=== PATIENT | male | born 1990 | race African-American/Black ===

== ENCOUNTER 2020-04-12 09:55 | Inpatient (IN) | payer OTHER ==
--- OUTSIDE RECORDS SUMMARY | 2020-04-12 09:59 | XMS ---
:1990 [facility] Support Name Relationship Address Phone UE Unavailable Unavailable Unavailable ANJALI CHAVIRA SELF / SAME PATIENT [address] [place] [address] Re-disclosure Warning The records that you are about to access may contain information from federally- assisted alcohol or drug abuse programs. If such information is present, then the following federally mandated warning applies: This information has been disclosed to you from records protected by federal confidentiality rules (42 CFR part 2). The federal rules prohibit you from making any further disclosure of this information unless further disclosure is expressly permitted by the written consent of the person to whom it pertains or as otherwise permitted by 42 CFR part 2. A general authorization for the release of medical or other information is NOT sufficient for this purpose. The Federal rules restrict any use of the information to criminally investigate or prosecute any alcohol or drug abuse patient.The records that you are about to access may contain highly sensitive health information, the redisclosure of which is protected by Article 27-F of the [facility] Public Health law. If you continue you may haveaccess to information: Regarding HIV / AIDS; Provided by facilities licensed or operated by the [facility] Office of Mental Health; or Provided by the [facility] Office for People With Developmental Disabilities. If such information is present, then the following [facility] mandated warning applies: This information has been disclosed to you from confidential records which are protected by state law. State law prohibits you from making any further disclosure of this information without the specific written consent of the person to whom it pertains, or as otherwise permitted by law. Any unauthorized further disclosure in violation of state law may result in a fine or intermediate sentence or both. A general authorization for the release of medical or other information is NOT sufficient authorization for further disclosure. Insurance Providers Payer name Policy type Policy ID Covered Covered alliance party's Policy P vy / Coverage alliance party ID relationship to Alfaro Inf ormation type alfaro -BEACON [id number] SP [id number] [facility]
--- NOTE | 2020-04-12 11:33 | BHS.RME ---
Substance Use & Tx History - Substance Use History percocet Substance amount: 120 mgs to 150 mgs Frequency of use: Daily Substance route: Oral Date of Last Use: 04/10/20 Marijuana/Hashish Substance amount: 20$ of marijuana Frequency of use: Daily Substance route: Smoking Date of Last Use: 04/10/20 suboxone Substance amount: 4mg Frequency of use: Once a month Date of Last Use: 04/11/20 - Last Treatment Date of last treatment: never been in detox before Physical/Psych/Mental Status - Behavior General Behavior: Increased activity (restlessness, agitation) Eye Contact: Normal - Cooperativeness Cooperativeness: Cooperative - Thinking Thought Processes: Logical Thought content: Future oriented - Physical Health Problems Is patient presently having any pain?: No Does patient presently have any injuries (include location): No Does patient currently have a fever: No COWS - Scale Resting Pulse: 0= [place] 80 or Below Sweatin= Chills/Flushing Restless Observation: 3= Extraneous Movement Pupil Size: 1= Pupils >than Normal Bone or Joint Aches: 2= Severe Diffuse Aches Runny Nose/ Eye Tearin= Runny Nose/Eyes GI Upset > 30mins: 2= Nausea/Diarrhea Tremor Observation: 2= Slight Tremor Visible Yawning Observation: 1= 1-2x During Session Anxiety or Irritability: 2=Irritable/Anxious Goose Flesh Skin: 0=Smooth Skin COWS Score: 16
--- NOTE | 2020-04-12 11:42 | HP ---
COWS - Scale Resting Pulse: 0= [place] 80 or Below Sweatin= Chills/Flushing Restless Observation: 3= Extraneous Movement Pupil Size: 1= Pupils >than Normal Bone or Joint Aches: 2= Severe Diffuse Aches Runny Nose/ Eye Tearin= Runny Nose/Eyes GI Upset > 30mins: 2= Nausea/Diarrhea Tremor Observation: 2= Slight Tremor Visible Yawning Observation: 1= 1-2x During Session Anxiety or Irritability: 2=Irritable/Anxious Goose Flesh Skin: 0=Smooth Skin COWS Score: 16 CIWA Score - Admission Criteria [facility]ASAS Guidelines: Admission for Medically Managed Detox: Requires at least one of the followin. CIWA greater than 12 2. Seizures within the past 24 hours 3. Delirium tremens within the past 24 hours 4. Hallucinations within the past 24 hours 5. Acute intervention needed for co occurring medical disorder 6. Acute intervention needed for co occurring psychiatric disorder 7. Severe withdrawal that cannot be handled at a lower level of care (continued vomiting, continued diarrhea, abnormal vital signs) requiring intravenous medication and/or fluids 8. Admitting History and Physical - Admission Chief Complaint: i need help to stop using percocet History of Present Illness: this 29 years old male with percocet dependence seeking detox,seeking help to stop, withdrawal symptom History Source: Patient Limitations to Obtaining History: No Limitations - Past Medical History Additional Past Medical History: transgender male to female - Smoking History Smoking history: Never smoked - Alcohol/Substance Use Hx Alcohol Use: No - Social History Usual Living Arrangement: Yes: With Parent Do you think of yourself as: Other (transgender male to female) Occupation: unemployed History of Recent Travel: No Other Social History: no legal issue Admission [facility] Chief Complaint: i need help to stop using percocet Allergies/Adverse Reactions: Allergies Allergy/AdvReac Type Severity Reaction Status Date / Time No Known Allergies Allergy Verified 04/12/20 11:43 History of Present Illness: this 29 years old male with percocet dependence seeking detox, first detox denied medical problem no seizure no syncope no legal issue transgender male to female Exam Limitations: No Limitations - Ebola screening Have you traveled outside of the country in the last 21 days: No Have you had contact with anyone from an Ebola affected area: No Have you been sick,other than usual withdrawal symptoms: No Do you have a fever: No - Review of Systems Constitutional: Chills, Loss of Appetite, Malaise, Night Sweats, Changes in sleep, Unintentional Wgt. Loss EENT: reports: Tearing, Nose Congestion Respiratory: reports: No Symptoms reported Cardiac: reports: No Symptoms Reported GI: reports: Nausea, Poor Appetite, Vomiting, Abdominal cramping : reports: No Symptoms Reported Musculoskeletal: reports: Back Pain, Joint Pain, Muscle Pain Integumentary: reports: Dryness Neuro: reports: Tremors Endocrine: reports: No Symptoms Reported Hematology: reports: No Symptoms Reported Psychiatric: reports: No Sypmtoms Reported, Judgement Intact, Mood/Affect Appropiate, Orientated x3 Other Systems: Reviewed and Negative Patient History - Patient Medical History Hx Anemia: No Hx Asthma: No Hx Chronic Obstructive Pulmonary Disease (COPD): No Hx Cancer: No Hx Cardiac Disorders: No Hx Congestive Heart Failure: No Hx Hypertension: No Hx Hypercholesterolemia: No Hx Pacemaker: No HX Cerebrovascular Accident: No Hx Seizures: No Hx Dementia: No Hx Diabetes: No Hx Gastrointestinal Disorders: No Hx Liver Disease: No Hx Genitourinary Disorders: No Hx Sexually Transmitted Disorders: No Hx Renal Disease (ESRD): No Hx Thyroid Disease: No Hx Human Immunodeficiency Virus (HIV): No (last 01/2020 negative) Hx Hepatitis C: No Hx Depression: No Hx Suicide Attempt: No Hx Bipolar Disorder: No Hx Schizophrenia: No Other Medical History: no suicidal,no homicidal - Patient Surgical History Past Surgical History: No - PPD History Previous Implant?: Yes Documented Results: Negative w/o proof Implanted On Prior [facility] Admission?: No PPD to be Administered?: Yes - Smoking Cessation Smoking history: Never smoked - Substance & Tx. History Hx Alcohol Use: No Hx Substance Use: Yes Substance Use Type: Opiates Hx Substance Use Treatment: No - Substances abused Other Other (specify): percocet Substance route: Oral Frequency: Daily Amount used: 120 mgs to 150 mgs Age of first use: 27 Date of last use: 04/10/20 Marijuana/Hashish Substance route: Smoking Frequency: Daily Amount used: 20$ Age of first use: 13 Date of last use: 04/10/20 Admission Physical Exam BHS - Vital Signs Vital Signs: bp 118/74 p50 r18 t98.6 pulse ox 100% alex 0.00 - Physical General Appearance: Yes: Moderate Distress, Tremorous, Irritable, Sweating, Anxious HEENTM: Yes: Normocephalic, JOSHUA, Pharynx Normal Respiratory: Yes: Within Normal Limits, Lungs Clear, Normal Breath Sounds Neck: Yes: Within Normal Limits, No masses,lesions,Nodules, Supple Breast: Yes: Other (bileral brast shahzad iqbal 10 years ago) Cardiology: Yes: Within Normal Limits, Regular Rhythm, Regular Rate, S1, S2 Abdominal: Yes: Within Normal Limits, Non Tender, Flat, Soft, Increased Bowel Sounds Genitourinary: Yes: Within Normal Limits Back: Yes: Muscle Spasm Musculoskeletal: Yes: Back pain, Muscle Pain Extremities: Yes: Tremors 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
[2020-04-12 11:55] VITALS: BMI 17.1
[2020-04-12] MEDS ORDERED: ONDANSETRON *ODT* 4 MG TABLET SL PRN (12:05)
[2020-04-12] MEDS ORDERED: BISMUTH SUBSALICYLATE 524 MG/30 ML UD PO PRN (12:05)
[2020-04-12] MEDS ORDERED: METHOCARBAMOL 500 MG TABLET PO PRN (12:05)
[2020-04-12] MEDS ORDERED: MAGNESIUM CITRATE 300 ML BOTTLE PO PRN (12:05)
[2020-04-12] MEDS ORDERED: ACETAMINOPHEN 325 MG TABLET (FP) PO PRN ×2 (12:05)
[2020-04-12] MEDS ORDERED: MAG HYDROX/AL HYDROX/SIMETH 30 ML UNIT-DOSE CUP PO PRN (12:05)
[2020-04-12] MEDS ORDERED: cloNIDine HCL 0.1 MG TABLET PO PRN (12:05)
[2020-04-12] MEDS ORDERED: IBUPROFEN 400 MG TABLET (FP) PO PRN (12:05)
[2020-04-12] MEDS ORDERED: METHADONE HCL 10 MG TABLET (FOR DETOX USE ONLY) PO ONE (12:05)
[2020-04-12] MEDS ORDERED: MENTHOL/PHENOL 1 EACH UD MM PRN (12:05)
[2020-04-12] MEDS ORDERED: MAGNESIUM HYDROX 2400MG/30ML ORAL SUSPENSION 30 ML CUP PO PRN (12:05)
--- OUTSIDE RECORDS SUMMARY | 2020-04-12 12:05 | XMS ---
:1990 [facility] Support Name Relationship Address Phone UE Unavailable Unavailable Unavailable ANJALI CHAVIRA SELF / SAME PATIENT [address] [place] [address] Re-disclosure Warning The records that you are [...] is protected by Article 27-F of the [facility] Public Health law. If you continue you may haveaccess to information: Regarding HIV / AIDS; Provided by facilities licensed or operated by the [facility] Office of Mental Health; or Provided by the [facility] Office for People With Developmental Disabilities. If such information is present, then the following [facility] mandated warning applies: This information has been [...] law may result in a fine or residential sentence or both. A general authorization for the release of medical or other information is NOT sufficient authorization for further disclosure. Insurance Providers Payer name Policy type Policy ID Covered Covered constitution party's Policy P vy / Coverage constitution party ID relationship to Alfaro Inf ormation type alfaro -BEACON [id number] SP [id number] [facility]
[2020-04-12] MEDS: hydrOXYzine PAMOATE 25 MG CAPSULE (FP) PO SCH ×3 (13:01→21:45)
[2020-04-12] MEDS ORDERED: THIAMINE HCL 100 MG TABLET (FP) PO SCH (22:00)
[2020-04-12] MEDS ORDERED: MELATONIN 5 MG TABLETS PO SCH (22:00)
[2020-04-13] MEDS: hydrOXYzine PAMOATE 25 MG CAPSULE (FP) PO SCH ×3 (06:09→14:22)
--- NOTE | 2020-04-13 07:11 | EKG ---
Test Reason : Blood Pressure : / mmHG Vent. Rate : 051 BPM Atrial Rate : 051 BPM P-R Int : 118 ms QRS Dur : 102 ms QT Int : 436 ms P-R-T Axes : 018 050 039 degrees QTc Int : 401 ms SINUS BRADYCARDIA NONSPECIFIC T WAVE ABNORMALITY BORDERLINE ECG NO PREVIOUS ECGS AVAILABLE CLINICAL CORRELATION IS RECOMMENDED Confirmed by CAIT CASSIDY, BRIAN ([id number]) on 04/13/2020 7:11:39 AM Referred By: FRANKLIN Confirmed By:BRIAN CHAVIRA MD
[2020-04-13] MEDS ORDERED: METHADONE HCL 5 MG TABLET (FOR DETOX USE ONLY) ONE (08:58)
[2020-04-13] MEDS ORDERED: METHADONE HCL 10 MG TABLET (FOR DETOX USE ONLY) ONE (08:58)
[2020-04-13] MEDS ORDERED: METHADONE (DETOX) 20 MG, METHADONE (DETOX) 5 MG PO ONE (10:00)
[2020-04-13] MEDS ORDERED: PRENATAL VITAMINS W/ FOLIC ACID TABLET (FP) PO SCH (10:00)
[2020-04-13 10:18] LABS: HEMATOCRIT 37.4 % (35.4-49); HEMOGLOBIN 12.6 GM/dL (11.7-16.9); MCH 29.6 pg (25.7-33.7); MCHC 33.8 g/dl (32.0-35.9); MEAN CELL VOLUME 87.4 fl (80-96); MEAN PLT VOLUME 9.1 fl (7.5-11.1); PLATELET COUNT 275 K/MM3 (134-434); RBC 4.28 M/mm3 (4.00-5.60); RDW 13.5 % (11.9-15.9); WHITE BLOOD COUNT 10.9 K/mm3 (4.0-10.0)
[2020-04-13 10:24] LABS: ALBUMIN 3.6 g/dl (3.4-5.0); BILIRUBIN,TOTAL 1.1 mg/dL (0.2-1); BLOOD UREA NITROGEN 6.6 mg/dL (7-18); CALCIUM 8.9 mg/dL (8.5-10.1); CREATININE 1.2 mg/dL (0.55-1.3); POTASSIUM 3.9 mmol/L (3.5-5.1); TOT PROT 7.1 g/dl (6.4-8.2)
--- NOTE | 2020-04-13 13:13 | PN ---
BHS COWS - Scale Resting Pulse: 0= [place] 80 or Below Sweatin=Flushed/Facial Moisture Restless Observation: 0= Sits Still Pupil Size: 0= Normal to Room Light Bone or Joint Aches: 2= Severe Diffuse Aches Runny Nose/ Eye Tearin= None GI Upset > 30mins: 0= None Tremor Observation of Outstretched Hands: 2= Slight Tremor Visible Yawning Observation: 0= None Anxiety or Irritability: 2=Irritable/Anxious Goose Flesh Skin: 0=Smooth Skin COWS Score: 8 BHS Progress Note (SOAP) Subjective: C/O sweats, chills, anxiety, body aches, and tremors. Objective: 04/13/20 13:12 Vital Signs 04/13/20 08:51 Temperature 97.8 F Pulse Rate 54 L Respiratory 18 Rate Blood Pressure 101/54 L Laboratory Last Values WBC 10.9 K/mm3 (4.0-10.0) H 04/13/20 07:35 RBC 4.28 M/mm3 (4.00-5.60) 04/13/20 07:35 Hgb 12.6 GM/dL (11.7-16.9) 04/13/20 07:35 Hct 37.4 % (35.4-49) 04/13/20 07:35 MCV 87.4 fl (80-96) 04/13/20 07:35 MCH 29.6 pg (25.7-33.7) 04/13/20 07:35 MCHC 33.8 g/dl (32.0-35.9) 04/13/20 07:35 RDW 13.5 % (11.9-15.9) 04/13/20 07:35 Plt Count 275 K/MM3 (134-434) 04/13/20 07:35 MPV 9.1 fl (7.5-11.1) 04/13/20 07:35 Sodium 138 mmol/L (136-145) 04/13/20 07:35 Potassium 3.9 mmol/L (3.5-5.1) 04/13/20 07:35 Chloride 103 mmol/L (98-107) 04/13/20 07:35 Carbon Dioxide 29 mmol/L (21-32) 04/13/20 07:35 Anion Gap 6 MMOL/L (8-16) L 04/13/20 07:35 BUN 6.6 mg/dL (7-18) L 04/13/20 07:35 Creatinine 1.2 mg/dL (0.55-1.3) 04/13/20 07:35 Est GFR (CKD-EPI)AfAm 94.14 04/13/20 07:35 Est GFR (CKD-EPI)NonAf 81.23 04/13/20 07:35 Random Glucose 92 mg/dL (74-106) 04/13/20 07:35 Calcium 8.9 mg/dL (8.5-10.1) 04/13/20 07:35 Total Bilirubin 1.1 mg/dL (0.2-1) H 04/13/20 07:35 AST 15 U/L (15-37) 04/13/20 07:35 ALT 27 U/L (13-61) 04/13/20 07:35 Alkaline Phosphatase 54 U/L (45-117) 04/13/20 07:35 Total Protein 7.1 g/dl (6.4-8.2) 04/13/20 07:35 Albumin 3.6 g/dl (3.4-5.0) 04/13/20 07:35 Syphilis Serology Reactive (NONREACTIVE) A* 04/13/20 07:35 RPR Titer Reactive 1:1 (NONREACTIVE) H 04/13/20 07:35 HIV Ag/Ab Combo Qual Negative (NEGATIVE) 04/13/20 07:50 Labs noted with reactive RPR, patient was treated in the past for syphilis. Assessment: 04/13/20 13:13 Alert and oriented x3, in no acute respiratory distress. Full ROM, ambulating in the unit without assistance. Withdrawal symptoms. Plan: Continue detox protocol.
--- NOTE | 2020-04-13 17:23 | DS ---
[facility] Detox Discharge Summary Admission Date: 04/12/20 Discharge Date: 04/13/20 - History Additional Comments: Patient is leaving against medical advice. Risks and consequences of his actions reinforced. Patient verbalized understanding of instructions, signed the AMA form and was escorted off the unit by security. He is alert and oriented x 3, ambulates independently, not in acute distress and vital signs stable. Pertinent Past History: Opioid dependence Cannabis dependence Syphilis Transgender - Physical Exam Results Vital Signs: Vital Signs Temperature 98.4 F 04/13/20 13:18 Pulse Rate 57 L 04/13/20 13:18 Respiratory Rate 18 04/13/20 13:18 Blood Pressure 120/68 04/13/20 13:18 O2 Sat by Pulse Oximetry (%) 100 04/13/20 13:18 Laboratory Last Values WBC 10.9 K/mm3 (4.0-10.0) H 04/13/20 07:35 RBC 4.28 M/mm3 (4.00-5.60) 04/13/20 07:35 Hgb 12.6 GM/dL (11.7-16.9) 04/13/20 07:35 Hct 37.4 % (35.4-49) 04/13/20 07:35 MCV 87.4 fl (80-96) 04/13/20 07:35 MCH 29.6 pg (25.7-33.7) 04/13/20 07:35 MCHC 33.8 g/dl (32.0-35.9) 04/13/20 07:35 RDW 13.5 % (11.9-15.9) 04/13/20 07:35 Plt Count 275 K/MM3 (134-434) 04/13/20 07:35 MPV 9.1 fl (7.5-11.1) 04/13/20 07:35 Sodium 138 mmol/L (136-145) 04/13/20 07:35 Potassium 3.9 mmol/L (3.5-5.1) 04/13/20 07:35 Chloride 103 mmol/L (98-107) 04/13/20 07:35 Carbon Dioxide 29 mmol/L (21-32) 04/13/20 07:35 Anion Gap 6 MMOL/L (8-16) L 04/13/20 07:35 BUN 6.6 mg/dL (7-18) L 04/13/20 07:35 Creatinine 1.2 mg/dL (0.55-1.3) 04/13/20 07:35 Est GFR (CKD-EPI)AfAm 94.14 04/13/20 07:35 Est GFR (CKD-EPI)NonAf 81.23 04/13/20 07:35 Random Glucose 92 mg/dL (74-106) 04/13/20 07:35 Calcium 8.9 mg/dL (8.5-10.1) 04/13/20 07:35 Total Bilirubin 1.1 mg/dL (0.2-1) H 04/13/20 07:35 AST 15 U/L (15-37) 04/13/20 07:35 ALT 27 U/L (13-61) 04/13/20 07:35 Alkaline Phosphatase 54 U/L (45-117) 04/13/20 07:35 Total Protein 7.1 g/dl (6.4-8.2) 04/13/20 07:35 Albumin 3.6 g/dl (3.4-5.0) 04/13/20 07:35 Syphilis Serology Reactive (NONREACTIVE) A* 04/13/20 07:35 RPR Titer Reactive 1:1 (NONREACTIVE) H 04/13/20 07:35 COVID-19 (XAVI) Not detected (Not Detected) 04/12/20 12:15 HIV Ag/Ab Combo Qual Negative (NEGATIVE) 04/13/20 07:50 Pertinent Admission Physical Exam Findings: Opioid withdrawal symptoms - Medication Discharge Medications: Ambulatory Orders NK [No Known Home Medication] 04/12/20 - Diagnosis (1) Syphilis in male Current Visit: Yes Status: Chronic (2) Cannabis dependence Current Visit: Yes Status: Chronic (3) Opioid dependence with withdrawal Current Visit: Yes Status: Chronic (4) Transgender Current Visit: Yes Status: Chronic - AMA Did Patient Leave Against Medical Advice: Yes
[2020-04-13 18:22] VITALS: BP 130/66; PULSE 56; TEMP 98.2
[2020-04-14] MEDS ORDERED: METHADONE HCL 10 MG TABLET (FOR DETOX USE ONLY) PO ONE (10:00)
[2020-04-15] MEDS ORDERED: METHADONE (DETOX) 10 MG, METHADONE (DETOX) 5 MG PO ONE (10:00)
[2020-04-16] MEDS ORDERED: METHADONE HCL 10 MG TABLET (FOR DETOX USE ONLY) PO ONE (10:00)
[2020-04-17] MEDS ORDERED: METHADONE HCL 5 MG TABLET (FOR DETOX USE ONLY) PO ONE (06:00)
== END 2020-04-13 17:39 | disposition left against medical advice (07) | DRG 770 ==
LOC: YASAS 09:55 → Y6N 12:01
PROVIDERS: ADMIT Allergy & Immunology; ATTEND Allergy & Immunology
PROC: HZ2ZZZZ Detoxification Services for Substance Abuse Treatment (ICD-10-PCS; principal; 2020-04-12)
DX: F11.23 Opioid dependence with withdrawal (principal); F12.20 Cannabis dependence, uncomplicated; F64.0 Transsexualism; A53.0 Latent syphilis, unspecified as early or late
CPT/HCPCS: 36415; 80053; 85027; 86593; 86780; 87389; 93005; 93010; C9803; U0003

== ENCOUNTER 2020-06-14 08:25 | Inpatient (IN) | payer OTHER ==
[2020-06-14] MEDS ORDERED: MENTHOL/PHENOL 1 EACH UD MM PRN (11:17)
[2020-06-14] MEDS ORDERED: MAGNESIUM CITRATE 300 ML BOTTLE PO PRN (11:17)
[2020-06-14] MEDS ORDERED: MAG HYDROX/AL HYDROX/SIMETH 30 ML UNIT-DOSE CUP PO PRN (11:17)
[2020-06-14] MEDS ORDERED: ONDANSETRON *ODT* 4 MG TABLET SL PRN (11:17)
[2020-06-14] MEDS ORDERED: ACETAMINOPHEN 325 MG TABLET (FP) PO PRN ×2 (11:17)
[2020-06-14] MEDS ORDERED: MAGNESIUM HYDROX 2400MG/30ML ORAL SUSPENSION 30 ML CUP PO PRN (11:17)
[2020-06-14] MEDS ORDERED: IBUPROFEN 400 MG TABLET (FP) PO PRN (11:17)
[2020-06-14] MEDS ORDERED: BISMUTH SUBSALICYLATE 524 MG/30 ML UD PO PRN (11:17)
[2020-06-14] MEDS ORDERED: cloNIDine HCL 0.1 MG TABLET PO PRN (11:20)
[2020-06-14] MEDS ORDERED: METHADONE HCL 10 MG TABLET (FOR DETOX USE ONLY) PO ONE (11:20)
[2020-06-14] MEDS: hydrOXYzine PAMOATE 25 MG CAPSULE (FP) PO PRN (22:07)
[2020-06-14] MEDS: METHOCARBAMOL 500 MG TABLET PO PRN (22:07)
[2020-06-14] MEDS: MELATONIN 5 MG TABLETS PO SCH (22:07)
[2020-06-14] MEDS: THIAMINE HCL 100 MG TABLET (FP) PO SCH (22:08)
[2020-06-15] MEDS: hydrOXYzine PAMOATE 25 MG CAPSULE (FP) PO PRN ×2 (06:31→22:10)
[2020-06-15] MEDS ORDERED: METHADONE HCL 10 MG TABLET (FOR DETOX USE ONLY) ONE (08:47)
[2020-06-15] MEDS ORDERED: METHADONE HCL 5 MG TABLET (FOR DETOX USE ONLY) ONE (08:47)
[2020-06-15 09:18] LABS: POTASSIUM 3.8 mmol/L (3.5-5.1)
[2020-06-15 09:20] LABS: CALCIUM 9.5 mg/dL (8.5-10.1)
[2020-06-15 09:21] LABS: ALBUMIN 4.2 g/dl (3.4-5.0); BLOOD UREA NITROGEN 8.3 mg/dL (7-18); MCH 28.9 pg (25.7-33.7); MCHC 32.5 g/dl (32.0-35.9); MEAN CELL VOLUME 88.9 fl (80-96); MEAN PLT VOLUME 9.5 fl (7.5-11.1); PLATELET COUNT 293 K/MM3 (134-434); RBC 5.18 M/mm3 (4.00-5.60); RDW 13.9 % (11.9-15.9); WHITE BLOOD COUNT 14.4 K/mm3 (4.0-10.0)
[2020-06-15 09:24] LABS: CREATININE 1.4 mg/dL (0.55-1.3)
[2020-06-15 09:25] LABS: BILIRUBIN,TOTAL 0.9 mg/dL (0.2-1)
[2020-06-15] MEDS ORDERED: METHADONE (DETOX) 20 MG, METHADONE (DETOX) 5 MG PO ONE (10:00)
[2020-06-15] MEDS: PRENATAL VITAMINS W/ FOLIC ACID TABLET (FP) PO SCH (10:07)
[2020-06-15] MEDS: THIAMINE HCL 100 MG TABLET (FP) PO SCH (22:10)
[2020-06-15] MEDS: MELATONIN 5 MG TABLETS PO SCH (22:11)
[2020-06-15] MEDS: METHOCARBAMOL 500 MG TABLET PO PRN (22:11)
[2020-06-16] MEDS ORDERED: METHADONE HCL 10 MG TABLET (FOR DETOX USE ONLY) PO ONE (10:00)
[2020-06-16] MEDS: PRENATAL VITAMINS W/ FOLIC ACID TABLET (FP) PO SCH (10:34)
[2020-06-16] MEDS: hydrOXYzine PAMOATE 25 MG CAPSULE (FP) PO PRN (16:04)
[2020-06-16] MEDS: METHOCARBAMOL 500 MG TABLET PO PRN (16:04)
[2020-06-16] MEDS: MELATONIN 5 MG TABLETS PO SCH (22:08)
[2020-06-16] MEDS: THIAMINE HCL 100 MG TABLET (FP) PO SCH (22:08)
[2020-06-17] MEDS ORDERED: METHADONE HCL 10 MG TABLET (FOR DETOX USE ONLY) ONE (08:48)
[2020-06-17] MEDS ORDERED: METHADONE HCL 5 MG TABLET (FOR DETOX USE ONLY) ONE (08:48)
[2020-06-17] MEDS ORDERED: METHADONE (DETOX) 10 MG, METHADONE (DETOX) 5 MG PO ONE (10:00)
[2020-06-17] MEDS: PRENATAL VITAMINS W/ FOLIC ACID TABLET (FP) PO SCH (10:48)
[2020-06-17] MEDS: METHOCARBAMOL 500 MG TABLET PO PRN ×2 (14:22→20:17)
[2020-06-17] MEDS: hydrOXYzine PAMOATE 25 MG CAPSULE (FP) PO PRN ×2 (14:22→22:08)
[2020-06-17] MEDS: THIAMINE HCL 100 MG TABLET (FP) PO SCH (22:08)
[2020-06-17] MEDS: MELATONIN 5 MG TABLETS PO SCH (22:08)
[2020-06-18] MEDS ORDERED: METHADONE HCL 10 MG TABLET (FOR DETOX USE ONLY) PO ONE (10:00)
[2020-06-18] MEDS: PRENATAL VITAMINS W/ FOLIC ACID TABLET (FP) PO SCH (10:34)
[2020-06-18 10:56] VITALS: BP 122/70; PULSE 65; TEMP 97.9
[2020-06-19] MEDS ORDERED: METHADONE HCL 5 MG TABLET (FOR DETOX USE ONLY) PO ONE (06:00)
== END 2020-06-18 10:20 | disposition home or self-care (01) | DRG 773 ==
LOC: YASAS 08:25 → Y6N 11:17
PROVIDERS: ADMIT Allergy & Immunology; ATTEND Allergy & Immunology
PROC: HZ2ZZZZ Detoxification Services for Substance Abuse Treatment (ICD-10-PCS; principal; 2020-06-14)
DX: F11.23 Opioid dependence with withdrawal (principal); F12.20 Cannabis dependence, uncomplicated; F64.0 Transsexualism; Z86.19 Personal history of other infectious and parasitic diseases; Z56.0 Unemployment, unspecified
CPT/HCPCS: 36415; 80053; 85027; 86593; 86780; C9803; J0735; Q0162; U0003

== ENCOUNTER 2020-09-12 11:07 | Inpatient (IN) | payer OTHER ==
[2020-09-12 11:35] VITALS: BMI 22.5
[2020-09-12] MEDS ORDERED: BISMUTH SUBSALICYLATE 262 MG/15 ML BTL PO PRN (12:03)
[2020-09-12] MEDS ORDERED: MAGNESIUM HYDROX 2400MG/30ML ORAL SUSPENSION 30 ML CUP PO PRN (12:03)
[2020-09-12] MEDS ORDERED: MAG HYDROX/AL HYDROX/SIMETH 30 ML UNIT-DOSE CUP PO PRN (12:03)
[2020-09-12] MEDS ORDERED: MAGNESIUM CITRATE 300 ML BOTTLE PO PRN (12:03)
[2020-09-12] MEDS ORDERED: IBUPROFEN 400 MG TABLET (FP) PO PRN (12:03)
[2020-09-12] MEDS ORDERED: MENTHOL/PHENOL 1 EACH UD MM PRN (12:03)
[2020-09-12] MEDS ORDERED: ACETAMINOPHEN 325 MG TABLET (FP) PO PRN ×2 (12:03)
[2020-09-12] MEDS ORDERED: ONDANSETRON *ODT* 4 MG TABLET SL PRN (12:03)
[2020-09-12] MEDS ORDERED: cloNIDine HCL 0.1 MG TABLET PO PRN (12:38)
[2020-09-12] MEDS ORDERED: METHADONE HCL 10 MG TABLET (FOR DETOX USE ONLY) PO ONE (12:38)
[2020-09-12] MEDS: hydrOXYzine PAMOATE 25 MG CAPSULE (FP) PO SCH ×3 (15:03→22:25)
[2020-09-12 15:18] LABS: HEMATOCRIT 43.4 % (35.4-49); HEMOGLOBIN 14.2 GM/dL (11.7-16.9); MCH 28.5 pg (25.7-33.7); MCHC 32.6 g/dl (32.0-35.9); MEAN CELL VOLUME 87.4 fl (80-96); MEAN PLT VOLUME 9.4 fl (7.5-11.1); PLATELET COUNT 324 K/MM3 (134-434); RBC 4.96 M/mm3 (4.00-5.60); RDW 13.4 % (11.9-15.9); WHITE BLOOD COUNT 11.7 K/mm3 (4.0-10.0)
[2020-09-12 15:22] LABS: POTASSIUM 3.9 mmol/L (3.5-5.1)
[2020-09-12 15:27] LABS: CALCIUM 9.8 mg/dL (8.5-10.1)
[2020-09-12 15:28] LABS: ALBUMIN 4.2 g/dl (3.4-5.0); BLOOD UREA NITROGEN 7.6 mg/dL (7-18)
[2020-09-12 15:31] LABS: CREATININE 1.1 mg/dL (0.55-1.3)
[2020-09-12 15:33] LABS: BILIRUBIN,TOTAL 0.5 mg/dL (0.2-1)
[2020-09-12] MEDS: METHOCARBAMOL 500 MG TABLET PO PRN (15:59)
[2020-09-12] MEDS: MELATONIN 5 MG TABLETS PO SCH (22:25)
[2020-09-12] MEDS: THIAMINE HCL 100 MG TABLET (FP) PO SCH (22:25)
[2020-09-13] MEDS: hydrOXYzine PAMOATE 25 MG CAPSULE (FP) PO SCH ×5 (06:47→22:10)
[2020-09-13] MEDS ORDERED: METHADONE HCL 10 MG TABLET (FOR DETOX USE ONLY) ONE (09:28)
[2020-09-13] MEDS ORDERED: METHADONE HCL 5 MG TABLET (FOR DETOX USE ONLY) ONE (09:28)
[2020-09-13] MEDS ORDERED: METHADONE (DETOX) 20 MG, METHADONE (DETOX) 5 MG PO ONE (10:00)
[2020-09-13] MEDS: PRENATAL VITAMINS W/ FOLIC ACID TABLET (FP) PO SCH (10:42)
[2020-09-13] MEDS: METHOCARBAMOL 500 MG TABLET PO PRN (15:24)
[2020-09-13] MEDS: MELATONIN 5 MG TABLETS PO SCH (22:10)
[2020-09-13] MEDS: THIAMINE HCL 100 MG TABLET (FP) PO SCH (22:10)
[2020-09-14] MEDS: hydrOXYzine PAMOATE 25 MG CAPSULE (FP) PO SCH ×5 (07:07→22:33)
[2020-09-14] MEDS: PRENATAL VITAMINS W/ FOLIC ACID TABLET (FP) PO SCH (09:34)
[2020-09-14] MEDS ORDERED: METHADONE HCL 10 MG TABLET (FOR DETOX USE ONLY) PO ONE (10:00)
[2020-09-14 18:20] LABS: PH,URINE 7.5 (5.0-8.0); URINE APPEARANCE CLEAR; URINE BILIRUBIN NEGATIVE (NEGATIVE); URINE COLOR YELLOW; URINE GLUCOSE (UA) NEGATIVE (NEGATIVE); URINE KETONE NEGATIVE (NEGATIVE); URINE LEUK ESTERASE NEGATIVE (NEGATIVE); URINE NITRITE NEGATIVE (NEGATIVE); URINE PROTEIN NEGATIVE (NEGATIVE); URINE UROBILINOGEN 0.2 mg/dL (0.2-1.0)
[2020-09-14] MEDS: THIAMINE HCL 100 MG TABLET (FP) PO SCH (22:33)
[2020-09-14] MEDS: MELATONIN 5 MG TABLETS PO SCH (22:34)
[2020-09-15] MEDS: hydrOXYzine PAMOATE 25 MG CAPSULE (FP) PO SCH (06:37)
[2020-09-15] MEDS: METHOCARBAMOL 500 MG TABLET PO PRN (06:39)
[2020-09-15 06:47] VITALS: BP 138/81; PULSE 65; TEMP 97.5
[2020-09-15] MEDS ORDERED: METHADONE (DETOX) 10 MG, METHADONE (DETOX) 5 MG PO ONE (10:00)
[2020-09-16] MEDS ORDERED: METHADONE HCL 10 MG TABLET (FOR DETOX USE ONLY) PO ONE (10:00)
[2020-09-17] MEDS ORDERED: METHADONE HCL 5 MG TABLET (FOR DETOX USE ONLY) PO ONE (06:00)
== END 2020-09-15 10:20 | disposition left against medical advice (07) | DRG 770 ==
LOC: YASAS 11:07 → Y6N 12:07
PROVIDERS: ADMIT Allergy & Immunology; ATTEND Allergy & Immunology
DX: F11.23 Opioid dependence with withdrawal (principal); F12.20 Cannabis dependence, uncomplicated; F19.24 Other psychoactive substance dependence with psychoactive substance-induced mood disorder; F41.9 Anxiety disorder, unspecified; F64.0 Transsexualism; A53.0 Latent syphilis, unspecified as early or late
CPT/HCPCS: 36415; 80053; 81003; 85027; 86593; 86780; C9803; U0003

== ENCOUNTER 2021-04-20 15:14 | Inpatient (IN) | payer OTHER ==
[2021-04-20 19:19] VITALS: BMI 23.8
[2021-04-20] MEDS ORDERED: ONDANSETRON *ODT* 4 MG TABLET SL PRN (19:24)
[2021-04-20] MEDS ORDERED: METHOCARBAMOL 500 MG TABLET PO PRN (19:24)
[2021-04-20] MEDS ORDERED: MAG HYDROX/AL HYDROX/SIMETH 30 ML UNIT-DOSE CUP PO PRN (19:24)
[2021-04-20] MEDS ORDERED: IBUPROFEN 400 MG TABLET (FP) PO PRN (19:24)
[2021-04-20] MEDS ORDERED: MENTHOL/PHENOL 1 EACH UD MM PRN (19:24)
[2021-04-20] MEDS ORDERED: MAGNESIUM CITRATE 300 ML BOTTLE PO PRN (19:24)
[2021-04-20] MEDS ORDERED: BISMUTH SUBSALICYLATE 524 MG/30 ML PO PRN (19:24)
[2021-04-20] MEDS ORDERED: ACETAMINOPHEN 325 MG TABLET (FP) PO PRN ×2 (19:24)
[2021-04-20] MEDS ORDERED: MAGNESIUM HYDROX 2400MG/30ML ORAL SUSPENSION 30 ML CUP PO PRN (19:24)
[2021-04-20] MEDS ORDERED: cloNIDine HCL 0.1 MG TABLET PO PRN (19:26)
[2021-04-20] MEDS ORDERED: methaDONE HCL 10 MG TABLET (FOR DETOX USE ONLY) PO ONE (19:26)
[2021-04-20] MEDS: hydrOXYzine PAMOATE 25 MG CAPSULE (FP) PO SCH (21:34)
[2021-04-20] MEDS: THIAMINE HCL 100 MG TABLET (FP) PO SCH (21:34)
[2021-04-20] MEDS: MELATONIN 5 MG TABLETS PO SCH (23:27)
[2021-04-21] MEDS: hydrOXYzine PAMOATE 25 MG CAPSULE (FP) PO SCH ×5 (05:46→22:24)
[2021-04-21] MEDS ORDERED: methaDONE HCL 10 MG TABLET (FOR DETOX USE ONLY) ONE (09:35)
[2021-04-21] MEDS: PRENATAL VITAMINS W/ FOLIC ACID TABLET (FP) PO SCH (10:12)
[2021-04-21 12:50] LABS: HEMATOCRIT 40.7 % (35.4-49); HEMOGLOBIN 13.8 GM/dL (11.7-16.9); MCH 29.1 pg (25.7-33.7); MEAN CELL VOLUME 85.6 fl (80-96); MEAN PLT VOLUME 9.1 fl (7.5-11.1); PLATELET COUNT 291 10^3/uL (134-434); RBC 4.75 M/mm3 (4.00-5.60); RDW 13.6 % (11.9-15.9); WHITE BLOOD COUNT 15.1 K/mm3 (4.0-10.0)
[2021-04-21 12:54] LABS: BLOOD UREA NITROGEN 13.2 mg/dL (7-18); CALCIUM 9.4 mg/dL (8.5-10.1)
[2021-04-21 12:57] LABS: CREATININE 1.4 mg/dL (0.55-1.3)
[2021-04-21 12:58] LABS: TOT PROT 7.7 g/dl (6.4-8.2)
[2021-04-21] MEDS: THIAMINE HCL 100 MG TABLET (FP) PO SCH (22:23)
[2021-04-21] MEDS: MELATONIN 5 MG TABLETS PO SCH (22:24)
[2021-04-21 23:17] LABS: HIV INTERPRETATION NEGATIVE (NEGATIVE)
[2021-04-22] MEDS: hydrOXYzine PAMOATE 25 MG CAPSULE (FP) PO SCH ×5 (05:53→21:56)
[2021-04-22] MEDS ORDERED: methaDONE HCL 10 MG TABLET (FOR DETOX USE ONLY) PO ONE (10:00)
[2021-04-22] MEDS: PRENATAL VITAMINS W/ FOLIC ACID TABLET (FP) PO SCH (10:05)
[2021-04-22] MEDS: NICOTINE 10 MG CARTRIDGE (INHALER) IH PRN (10:08)
[2021-04-22] MEDS ORDERED: POTASSIUM CHLORIDE ORAL LIQUID 20 MEQ/15 ML PO ONE ×2 (14:30→18:30)
[2021-04-22] MEDS: MELATONIN 5 MG TABLETS PO SCH (21:55)
[2021-04-22] MEDS: THIAMINE HCL 100 MG TABLET (FP) PO SCH (21:56)
[2021-04-23] MEDS: hydrOXYzine PAMOATE 25 MG CAPSULE (FP) PO SCH ×5 (05:56→21:10)
[2021-04-23] MEDS ORDERED: methaDONE HCL 10 MG TABLET (FOR DETOX USE ONLY) ONE (09:38)
[2021-04-23] MEDS: PRENATAL VITAMINS W/ FOLIC ACID TABLET (FP) PO SCH (10:08)
[2021-04-23 11:14] LABS: HEMATOCRIT 43.1 % (35.4-49); HEMOGLOBIN 14.4 GM/dL (11.7-16.9); MCH 29.1 pg (25.7-33.7); MCHC 33.4 g/dl (32.0-35.9); MEAN CELL VOLUME 87.2 fl (80-96); MEAN PLT VOLUME 8.7 fl (7.5-11.1); PLATELET COUNT 295 10^3/uL (134-434); RBC 4.94 M/mm3 (4.00-5.60); RDW 13.4 % (11.9-15.9); WHITE BLOOD COUNT 11.2 K/mm3 (4.0-10.0)
[2021-04-23] MEDS: NICOTINE 10 MG CARTRIDGE (INHALER) IH PRN (14:50)
[2021-04-23] MEDS: MELATONIN 5 MG TABLETS PO SCH (21:10)
[2021-04-23] MEDS: THIAMINE HCL 100 MG TABLET (FP) PO SCH (21:10)
[2021-04-24] MEDS: hydrOXYzine PAMOATE 25 MG CAPSULE (FP) PO SCH ×2 (06:23→09:48)
[2021-04-24 09:47] VITALS: BP 102/53; PULSE 62; TEMP 97.5
[2021-04-24] MEDS: PRENATAL VITAMINS W/ FOLIC ACID TABLET (FP) PO SCH (09:48)
[2021-04-24] MEDS ORDERED: methaDONE HCL 10 MG TABLET (FOR DETOX USE ONLY) PO ONE (10:00)
== END 2021-04-24 10:25 | disposition home or self-care (01) | DRG 773 ==
LOC: YASAS 15:14 → Y6N 20:28
PROVIDERS: ADMIT Allergy & Immunology; ATTEND Allergy & Immunology
PROC: HZ2ZZZZ Detoxification Services for Substance Abuse Treatment (ICD-10-PCS; principal; 2021-04-20)
DX: F11.23 Opioid dependence with withdrawal (principal); F12.20 Cannabis dependence, uncomplicated; F17.210 Nicotine dependence, cigarettes, uncomplicated; F19.24 Other psychoactive substance dependence with psychoactive substance-induced mood disorder; F41.9 Anxiety disorder, unspecified; F64.9 Gender identity disorder, unspecified; D72.829 Elevated white blood cell count, unspecified; Z86.19 Personal history of other infectious and parasitic diseases; Z56.0 Unemployment, unspecified
CPT/HCPCS: 36415; 80053; 84132; 85027; 86593; 86780; 87389; C9803; U0003; U0005

== ENCOUNTER 2022-08-25 11:45 | Inpatient (IN) | payer OTHER ==
[2022-08-25 12:12] VITALS: BMI 23.0
[2022-08-25] MEDS ORDERED: DICYCLOMINE HCL 10 MG CAPSULE PO PRN (12:50)
[2022-08-25] MEDS ORDERED: MAG HYDROX/AL HYDROX/SIMETH 30 ML UNIT-DOSE CUP PO PRN (12:50)
[2022-08-25] MEDS ORDERED: BENZOCAINE/MENTHOL (CHLORASEPTIC ) LOZENGE MM PRN (12:50)
[2022-08-25] MEDS ORDERED: BISMUTH SUBSALICYLATE 524 MG/30 ML PO PRN (12:50)
[2022-08-25] MEDS ORDERED: ONDANSETRON *ODT* 4 MG TABLET SL PRN (12:50)
[2022-08-25] MEDS ORDERED: MAGNESIUM HYDROX 2400MG/30ML ORAL SUSPENSION 30 ML CUP PO PRN (12:50)
[2022-08-25] MEDS ORDERED: LOPERAMIDE HCL 2 MG CAPSULE PO PRN (12:50)
[2022-08-25] MEDS ORDERED: POLYETHYLENE GLYCOL (HEALTHYLAX) 3350 17 GM PACKET PO PRN (12:50)
[2022-08-25] MEDS ORDERED: NALOXONE HCL (KLOXXADO) 8 MG SPRAY NS PRN (12:50)
[2022-08-25] MEDS ORDERED: ACETAMINOPHEN 325 MG TABLET (FP) PO PRN ×2 (12:50)
[2022-08-25] MEDS ORDERED: methaDONE HCL 10 MG TABLET (FOR DETOX USE ONLY) PO ONE (12:50)
[2022-08-25] MEDS ORDERED: IBUPROFEN 600 MG TABLET (FP) PO PRN (12:50)
[2022-08-25] MEDS ORDERED: IBUPROFEN 400 MG TABLET (FP) PO PRN (12:50)
[2022-08-25] MEDS ORDERED: methaDONE HCL 10 MG TABLET (FOR DETOX USE ONLY) ONE (13:32)
[2022-08-25 16:42] LABS: HEMATOCRIT 38.7 % (32.4-45.2); HEMOGLOBIN 13.2 GM/dL (10.7-15.3); MCH 29.3 pg (25.7-33.7); MCHC 34.2 g/dl (32.0-36.0); MEAN CELL VOLUME 85.6 fl (80-96); MEAN PLT VOLUME 8.6 fl (7.5-11.1); PLATELET COUNT 275 10^3/uL (134-434); RBC 4.53 M/mm3 (3.60-5.2); RDW 13.9 % (11.6-15.6); WHITE BLOOD COUNT 11.5 K/mm3 (4.0-10.0)
[2022-08-25 16:45] LABS: ALBUMIN 3.9 g/dl (3.4-5.0); CALCIUM 9.5 mg/dL (8.5-10.1)
[2022-08-25 16:46] LABS: BLOOD UREA NITROGEN 6.6 mg/dL (7-18)
[2022-08-25 16:48] LABS: CREATININE 1.2 mg/dL (0.55-1.3)
[2022-08-25 16:50] LABS: BILIRUBIN,TOTAL 0.7 mg/dL (0.2-1); TOT PROT 7.2 g/dl (6.4-8.2)
[2022-08-25] MEDS: MELATONIN 5 MG TABLETS PO SCH (21:56)
[2022-08-25] MEDS: THIAMINE HCL 100 MG TABLET (FP) PO SCH (21:56)
[2022-08-26] MEDS: PRENATAL VITAMINS W/ FOLIC ACID TABLET (FP) PO SCH (10:41)
[2022-08-26] MEDS: METHOCARBAMOL 500 MG TABLET PO PRN (17:49)
[2022-08-26] MEDS: THIAMINE HCL 100 MG TABLET (FP) PO SCH (22:07)
[2022-08-26] MEDS: MELATONIN 5 MG TABLETS PO SCH (22:07)
[2022-08-26] MEDS: hydrOXYzine PAMOATE 25 MG CAPSULE (FP) PO PRN (22:08)
[2022-08-27] MEDS ORDERED: methaDONE HCL 10 MG TABLET (FOR DETOX USE ONLY) PO ONE (10:00)
[2022-08-27] MEDS: METHOCARBAMOL 500 MG TABLET PO PRN ×2 (10:01→16:47)
[2022-08-27] MEDS: hydrOXYzine PAMOATE 25 MG CAPSULE (FP) PO PRN ×2 (10:01→22:26)
[2022-08-27] MEDS: PRENATAL VITAMINS W/ FOLIC ACID TABLET (FP) PO SCH (10:02)
[2022-08-27] MEDS ORDERED: NICOTINE 10 MG CARTRIDGE (INHALER) IH PRN (14:03)
[2022-08-27] MEDS: MELATONIN 5 MG TABLETS PO SCH (22:25)
[2022-08-27] MEDS: THIAMINE HCL 100 MG TABLET (FP) PO SCH (22:25)
[2022-08-28] MEDS: PRENATAL VITAMINS W/ FOLIC ACID TABLET (FP) PO SCH (10:18)
[2022-08-28] MEDS: METHOCARBAMOL 500 MG TABLET PO PRN (14:36)
[2022-08-28] MEDS: hydrOXYzine PAMOATE 25 MG CAPSULE (FP) PO PRN (14:36)
[2022-08-28] MEDS: MELATONIN 5 MG TABLETS PO SCH (22:42)
[2022-08-28] MEDS: THIAMINE HCL 100 MG TABLET (FP) PO SCH (22:42)
[2022-08-29 09:07] VITALS: BP 124/68; PULSE 42; RESP 18; TEMP 97.7
[2022-08-29] MEDS: PRENATAL VITAMINS W/ FOLIC ACID TABLET (FP) PO SCH (09:56)
[2022-08-29] MEDS ORDERED: methaDONE HCL 10 MG TABLET (FOR DETOX USE ONLY) PO ONE (10:00)
== END 2022-08-29 16:00 | disposition left against medical advice (07) | DRG 770 ==
LOC: YASAS 11:45 → Y3N 13:00
PROVIDERS: ADMIT Allergy & Immunology; ATTEND Surgery
PROC: HZ2ZZZZ Detoxification Services for Substance Abuse Treatment (ICD-10-PCS; principal; 2022-08-25)
DX: F11.23 Opioid dependence with withdrawal (principal); F12.20 Cannabis dependence, uncomplicated; F64.0 Transsexualism; D72.829 Elevated white blood cell count, unspecified; E87.6 Hypokalemia; Z86.19 Personal history of other infectious and parasitic diseases; Z28.310 Unvaccinated for COVID-19; Z28.9 Immunization not carried out for unspecified reason
CPT/HCPCS: 36415; 80053; 85027; 86593; 86780; 87811; C9803-CS; U0003; U0005

== ENCOUNTER 2023-10-09 09:47 | Inpatient (IN) | payer OTHER ==
[2023-10-09 10:13] VITALS: BMI 23.8
[2023-10-09] MEDS ORDERED: cloNIDine HCL 0.1 MG TABLET PO PRN (10:49)
[2023-10-09] MEDS ORDERED: IBUPROFEN 400 MG TABLET (FP) PO PRN (10:51)
[2023-10-09] MEDS ORDERED: MAGNESIUM HYDROX 2400MG/30ML ORAL SUSPENSION 30 ML CUP PO PRN (10:51)
[2023-10-09] MEDS ORDERED: DICYCLOMINE HCL 10 MG CAPSULE PO PRN (10:51)
[2023-10-09] MEDS ORDERED: NALOXONE HCL (KLOXXADO) 8 MG SPRAY NS PRN (10:51)
[2023-10-09] MEDS ORDERED: POLYETHYLENE GLYCOL (HEALTHYLAX) 3350 17 GM PACKET PO PRN (10:51)
[2023-10-09] MEDS ORDERED: BISMUTH SUBSALICYLATE 524 MG/30 ML PO PRN (10:51)
[2023-10-09] MEDS ORDERED: ONDANSETRON *ODT* 4 MG TABLET SL PRN (10:51)
[2023-10-09] MEDS ORDERED: LOPERAMIDE HCL 2 MG CAPSULE PO PRN (10:51)
[2023-10-09] MEDS ORDERED: IBUPROFEN 600 MG TABLET (FP) PO PRN (10:51)
[2023-10-09] MEDS ORDERED: NALOXONE HCL 0.4 MG/ML VIAL IM PRN (10:51)
[2023-10-09] MEDS ORDERED: MAG HYDROX/AL HYDROX/SIMETH 30 ML UNIT-DOSE CUP PO PRN (10:51)
[2023-10-09] MEDS ORDERED: ACETAMINOPHEN 325 MG TABLET (FP) PO PRN (10:51)
[2023-10-09] MEDS ORDERED: BENZOCAINE/MENTHOL (CHLORASEPTIC ) LOZENGE MM PRN (10:51)
[2023-10-09] MEDS ORDERED: BENZONATATE 200 MG CAPSULE PO PRN (10:51)
[2023-10-09] MEDS ORDERED: guaiFENesin 600 MG TABLET.ER (FP) PO PRN (11:16)
[2023-10-09] MEDS ORDERED: methaDONE HCL 10 MG TABLET (FOR DETOX USE ONLY) ONE (11:33)
[2023-10-09] MEDS: methaDONE HCL 10 MG TABLET (FOR DETOX USE ONLY) PO ONE (11:39)
[2023-10-09] MEDS: METHOCARBAMOL 500 MG TABLET PO PRN (20:52)
[2023-10-09] MEDS: hydrOXYzine PAMOATE 25 MG CAPSULE (FP) PO PRN (20:52)
[2023-10-09] MEDS: MELATONIN 5 MG TABLETS PO SCH (22:34)
[2023-10-09] MEDS: THIAMINE HCL 100 MG TABLET (FP) PO SCH (22:34)
[2023-10-10] MEDS: PRENATAL VITAMINS W/ FOLIC ACID TABLET (FP) PO SCH (09:22)
[2023-10-10 21:01] LABS: URINE APPEARANCE CLEAR; URINE BILIRUBIN NEGATIVE (NEGATIVE); URINE COLOR YELLOW; URINE GLUCOSE (UA) NEGATIVE (NEGATIVE); URINE KETONE NEGATIVE (NEGATIVE); URINE LEUK ESTERASE NEGATIVE (NEGATIVE); URINE NITRITE NEGATIVE (NEGATIVE); URINE PROTEIN NEGATIVE (NEGATIVE); URINE UROBILINOGEN 0.2 mg/dL (0.2-1.0)
[2023-10-11] MEDS: methaDONE HCL 10 MG TABLET (FOR DETOX USE ONLY) PO ONE (09:53)
[2023-10-11] MEDS ORDERED: methaDONE HCL 10 MG TABLET PO PRN (13:02)
[2023-10-11] MEDS: methaDONE HCL 10 MG TABLET PO ONE (13:13)
[2023-10-11] MEDS: cloNIDine HCL 0.1 MG TABLET PO SCH (13:14)
[2023-10-12 06:31] VITALS: RESP 16
[2023-10-12] MEDS: methaDONE 40 MG, methaDONE 10 MG PO ONE (06:36)
[2023-10-12] MEDS ORDERED: methaDONE HCL 10 MG TABLET PO PRN (10:02)
[2023-10-12 10:45] VITALS: BP 91/55; PULSE 55; TEMP 98
[2023-10-12] MEDS ORDERED: methaDONE HCL 40 MG DISPERSABLE TABLET PO ONE (12:00)
[2023-10-13] MEDS ORDERED: cloNIDine HCL 0.1 MG TABLET PO PRN
[2023-10-13] MEDS ORDERED: methaDONE 40 MG, methaDONE 10 MG PO ONE (06:00)
[2023-10-13] MEDS ORDERED: methaDONE 40 MG, methaDONE 20 MG PO ONE (06:00)
[2023-10-13] MEDS ORDERED: methaDONE HCL 40 MG DISPERSABLE TABLET PO ONE (06:00)
[2023-10-13] MEDS ORDERED: methaDONE HCL 10 MG TABLET (FOR DETOX USE ONLY) PO ONE (10:00)
[2023-10-14] MEDS ORDERED: methaDONE 40 MG, methaDONE 20 MG PO ONE (06:00)
[2023-10-14] MEDS ORDERED: methaDONE HCL 40 MG DISPERSABLE TABLET PO ONE (06:00)
[2023-10-14] MEDS ORDERED: methaDONE 40 MG, methaDONE 30 MG PO ONE (06:00)
[2023-10-15] MEDS ORDERED: methaDONE HCL 40 MG DISPERSABLE TABLET PO ONE (06:00)
[2023-10-16] MEDS ORDERED: methaDONE 80 MG, methaDONE 10 MG PO ONE (06:00)
== END 2023-10-12 10:58 | disposition left against medical advice (07) | DRG 770 ==
LOC: YASAS 09:47 → Y6N 11:01
PROVIDERS: ADMIT Allergy & Immunology; ATTEND Surgery
PROC: HZ2ZZZZ Detoxification Services for Substance Abuse Treatment (ICD-10-PCS; principal; 2023-10-09)
DX: F11.23 Opioid dependence with withdrawal (principal); F12.20 Cannabis dependence, uncomplicated; F19.282 Other psychoactive substance dependence with psychoactive substance-induced sleep disorder; F19.280 Other psychoactive substance dependence with psychoactive substance-induced anxiety disorder; F64.0 Transsexualism; F43.10 Post-traumatic stress disorder, unspecified; F32.9 Major depressive disorder, single episode, unspecified; F90.9 Attention-deficit hyperactivity disorder, unspecified type; R76.8 Other specified abnormal immunological findings in serum; Z86.19 Personal history of other infectious and parasitic diseases; Z28.311 Partially vaccinated for COVID-19; Z28.9 Immunization not carried out for unspecified reason
CPT/HCPCS: 81003; 93005; 93010

== ENCOUNTER 2024-03-21 11:18 | Inpatient (IN) | payer OTHER ==
[2024-03-21 11:51] VITALS: BMI 23.0
[2024-03-21] MEDS ORDERED: DICYCLOMINE HCL 10 MG CAPSULE PO PRN (12:00)
[2024-03-21] MEDS ORDERED: IBUPROFEN 600 MG TABLET (FP) PO PRN (12:00)
[2024-03-21] MEDS ORDERED: NALOXONE HCL 0.4 MG/ML VIAL IM PRN (12:00)
[2024-03-21] MEDS ORDERED: POLYETHYLENE GLYCOL (HEALTHYLAX) 3350 17 GM PACKET PO PRN (12:00)
[2024-03-21] MEDS ORDERED: ACETAMINOPHEN 325 MG TABLET (FP) PO PRN (12:00)
[2024-03-21] MEDS ORDERED: MAGNESIUM HYDROX 2400MG/30ML ORAL SUSPENSION 30 ML CUP PO PRN (12:00)
[2024-03-21] MEDS ORDERED: IBUPROFEN 400 MG TABLET (FP) PO PRN (12:00)
[2024-03-21] MEDS ORDERED: LOPERAMIDE HCL 2 MG CAPSULE PO PRN (12:00)
[2024-03-21] MEDS ORDERED: NALOXONE (NARCAN) HCL 4 MG/0.1 ML SPRAY NS PRN (12:00)
[2024-03-21] MEDS ORDERED: BISMUTH SUBSALICYLATE 524 MG/30 ML PO PRN (12:00)
[2024-03-21] MEDS ORDERED: ONDANSETRON *ODT* 4 MG TABLET SL PRN (12:00)
[2024-03-21] MEDS ORDERED: BENZOCAINE/MENTHOL (CHLORASEPTIC ) LOZENGE MM PRN (12:00)
[2024-03-21] MEDS ORDERED: BENZONATATE 200 MG CAPSULE PO PRN (12:00)
[2024-03-21] MEDS ORDERED: MAG HYDROX/AL HYDROX/SIMETH 30 ML UNIT-DOSE CUP PO PRN (12:00)
[2024-03-21] MEDS ORDERED: guaiFENesin 600 MG TABLET.ER (FP) PO PRN (12:00)
[2024-03-21] MEDS: METHOCARBAMOL 500 MG TABLET PO PRN (14:42)
[2024-03-21] MEDS: hydrOXYzine PAMOATE 25 MG CAPSULE (FP) PO PRN (14:42)
[2024-03-21] MEDS: methaDONE HCL 10 MG TABLET (FOR DETOX USE ONLY) PO ONE (21:19)
[2024-03-21] MEDS: THIAMINE 100 MG TABLET PO SCH (21:20)
[2024-03-21] MEDS: MELATONIN 5 MG TABLETS PO SCH (21:20)
[2024-03-21] MEDS: cloNIDine HCL 0.1 MG TABLET PO PRN (21:20)
[2024-03-22] MEDS: PRENATAL VITAMINS W/ FOLIC ACID TABLET (FP) PO SCH (10:02)
[2024-03-22 11:25] LABS: HEMATOCRIT 38.5 % (35.4-49); HEMOGLOBIN 12.9 GM/dL (11.7-16.9); MCH 29.2 pg (25.7-33.7); MCHC 33.3 g/dl (32.0-35.9); MEAN CELL VOLUME 87.5 fl (80-96); MEAN PLT VOLUME 8.8 fl (7.5-11.1); PLATELET COUNT 336 10^3/uL (134-434); RBC 4.41 M/mm3 (4.00-5.60); RDW 13.7 % (11.9-15.9); WHITE BLOOD COUNT 12.5 K/mm3 (4.0-10.0)
[2024-03-22 11:44] LABS: POTASSIUM 3.8 mmol/L (3.5-5.1)
[2024-03-22 11:59] LABS: ALBUMIN 3.4 g/dl (3.4-5.0)
[2024-03-22 12:03] LABS: CREATININE 1.1 mg/dL (0.55-1.3)
[2024-03-22 12:04] LABS: BILIRUBIN,TOTAL 0.4 mg/dL (0.2-1)
[2024-03-22 12:05] LABS: TOT PROT 6.3 g/dl (6.4-8.2)
[2024-03-23] MEDS: methaDONE HCL 10 MG TABLET (FOR DETOX USE ONLY) PO ONE (10:23)
[2024-03-23] MEDS: methaDONE HCL 10 MG TABLET PO ONE (10:25)
[2024-03-24] MEDS ORDERED: methaDONE HCL 40 MG DISPERSABLE TABLET PO ONE (10:00)
[2024-03-24] MEDS: hydrOXYzine PAMOATE 50 MG CAPSULE (FP) PO PRN (21:28)
[2024-03-25] MEDS: methaDONE HCL 40 MG DISPERSABLE TABLET PO ONE (09:38)
[2024-03-25] MEDS ORDERED: methaDONE HCL 10 MG TABLET (FOR DETOX USE ONLY) PO ONE (10:00)
[2024-03-26] MEDS: methaDONE HCL 40 MG DISPERSABLE TABLET PO ONE (09:51)
[2024-03-26 14:09] VITALS: BP 148/90; PULSE 88; RESP 17; TEMP 97.8
== END 2024-03-26 14:50 | disposition left against medical advice (07) | DRG 773 ==
LOC: YASAS 11:18 → Y3N 14:14
PROVIDERS: ADMIT Allergy & Immunology; ATTEND Surgery
PROC: HZ2ZZZZ Detoxification Services for Substance Abuse Treatment (ICD-10-PCS; principal; 2024-03-21)
DX: F11.23 Opioid dependence with withdrawal (principal); F12.20 Cannabis dependence, uncomplicated; F64.0 Transsexualism; R76.8 Other specified abnormal immunological findings in serum; F91.8 Other conduct disorders; Z91.199 Patient's noncompliance with other medical treatment and regimen due to unspecified reason
CPT/HCPCS: 36415; 80053; 80305; 85027; 86593; 86780; 93005; 93010